=== PATIENT | female | born 1965 | race Caucasian/White ===

== ENCOUNTER → 2016-11-29 | Outpatient (CLI) | payer OTHER | LOC: FIMAGING 14:20 | DX: Z12.31 Encounter for screening mammogram for malignant neoplasm of breast (principal) | CPT/HCPCS: G0202 ==

== ENCOUNTER 2017-12-28 19:51 | Emergency (ER) | payer MEDICAID ==
[2017-12-28] MEDS ORDERED: ONDANSETRON 4 MG/2 ML VIAL IVP ONE (20:29)
[2017-12-28] MEDS ORDERED: NS 500 ML IV ONE (20:29)
[2017-12-28] MEDS ORDERED: fentaNYL 100 MCG/2 ML INJ IVP ONE (20:29)
--- NOTE | 2017-12-28 20:40 | EDPHY ---
H & P Time Seen by Provider: 12/28/17 20:09 HPI/ROS: HPI Abdominal pain. 52-year-old female by private vehicle with her friend. This patient complains of periumbilical abdominal pain which started on Saturday. She reports the pain comes on intermittently and feels achy and crampy. Today the pain worsened migrated to her right lower quadrant. She has had some nausea but no vomiting. She had a normal bowel movement earlier this morning. No bloody or melenic stool. Last meal was at 6:30 p.m., she ate dinner. No previous abdominal surgical history. She reports that she has had some burning with urination and increased frequency. ROS: Constitutional: No fever, no chills. No weakness. Eyes: No discharge. No changes in vision. ENT: No sore throat. No nasal congestion or rhinorrhea. Respiratory: No cough. No shortness of breath. Cardiac: No chest pain, no palpitations. Gastrointestinal: As above, no vomiting, no diarrhea. Genitourinary: No hematuria. As above. No vaginal bleeding. Musculoskeletal: No back pain. No neck pain. No myalgias or arthralgias. Skin: No rashes. Neurological: No headache. No focal weakness or altered sensation. Past medical history: Uterine fibroids, tubal ligation. Social history: Nonsmoker. Here with her friend. She is from the [place]. Drinks alcohol socially. Physical Exam: General Appearance: Alert, she appears uncomfortable but not in distress. This patient is responding to questions appropriately and in full sentences. This patient appears well-hydrated and well-nourished. Eyes: Pupils equal and round no pallor or injection. No lid edema, erythema or injection. Respiratory: There are no retractions, lungs are clear to auscultation with good air movement bilaterally. Cardiovascular: Regular rate and rhythm. No murmur. Gastrointestinal: Abdomen is soft with vague periumbilical and right lower quadrant tenderness on palpation, no masses, bowel sounds normal. No focal tenderness at McBurney's point. No Platt sign. Neurological: Motor sensory function is grossly intact. Cranial nerves are normal. Gait is normal. Skin: Warm and dry, no rashes. Musculoskeletal: Neck is supple and nontender. Extremities are symmetrical. All joints range without pain or impingement. Psychiatric: No agitation. No depression. Database: EKG: Imaging: CT abdomen and pelvis with IV contrast: Significant for constipation. Otherwise this study is normal. Appendicitis is unlikely. No other concerning findings. Results were discussed with staff radiologist Dr. Earl Bradley. Procedures: Emergency department course: Vital signs reviewed. She is moderately hypertensive. Vital signs otherwise normal. IV was placed, she was started on IV normal saline with 500 cc to be given over the next hour. She will be given 50 mcg of IV fentanyl initially for pain and 4 mg of IV Zofran. 9:50 p.m., patient re-evaluated. Resting comfortably at this time. Repeat abdominal exam at this time, she is soft, nontender nondistended. Discussed results of CT scan as well as other emergency department diagnostic workup. She was started on Keflex in the emergency department for urinary tract infection. I will also treat the patient for constipation. She will be sent home with a bottle of magnesium citrate. I will also write a prescription for a 1/2 prep of GoLYTELY should she not get significant relief from magnesium citrate. She is to follow up with her primary care physician on Saturday or Saturday of this coming week for re-evaluation. She feels comfortable with this plan and comfortable going home with her friend. Return to emergency department precautions have been thoroughly discussed with her. All of her questions were answered. She was discharged from emergency department in good condition. Differential Diagnosis: The differential diagnosis on this patient includes but is not limited to colitis, urinary tract infection, appendicitis. This represents a partial list of diagnoses considered. These considerations are based on history, physical exam, past history, reassessment and diagnostic testing. Smoking Status: Never smoked Constitutional: Initial Vital Signs Temperature (C) 36.7 C 12/28/17 19:53 Heart Rate 78 12/28/17 19:53 Respiratory Rate 18 12/28/17 19:53 Blood Pressure 169/104 H 12/28/17 19:53 O2 Sat (%) 96 12/28/17 19:53 O2 Delivery Mode Room Air Allergies/Adverse Reactions: No Known Allergies Allergy (Verified 12/28/17 19:55) Home Medications: Medication Instructions Recorded Thyroid [[place] Thyroid 60 MG (*)] 30 mg PO DAILY10 05/21/16 Cephalexin [Keflex (*)] 500 mg PO Q6 7 Days cap 12/28/17 Peg 3350/Na Sulf,Bicarb,Cl/KCl 2,000 ml PO ONCE #1 btl 12/28/17 [Golytely (RX)] Medical Decision Making - Diagnostics Imaging Results: Imaging Impressions Abdomen CT 12/28/17 20:31 Impression: 1. Pronounced constipation/obstipation from the level of the cecum to the rectosigmoid, with no mechanical obstruction or free air. There are few nonspecific fluid-filled loops of nondilated small bowel. 2. Incompletely-evaluated retrocecal appendix, but no apparent pericecal inflammation or free fluid. Findings were discussed with Cat Bucio MD at 21:40, on 12/28/2017. - Data Points Laboratory Results: Laboratory Results 12/28/17 20:20 12/28/17 20:20 12/28/17 12/28/17 12/28/17 20:20 20:20 20:20 WBC RBC Hgb Hct MCV MCH MCHC RDW Plt Count MPV Neut % (Auto) Lymph % (Auto) [place] % (Auto) Eos % (Auto) Baso % (Auto) Nucleat RBC Rel Count Absolute Neuts (auto) Absolute Lymphs (auto) Absolute Monos (auto) Absolute Eos (auto) Absolute Basos (auto) Absolute Nucleated RBC Immature Gran % Immature Gran # Sodium 141 mEq/L mEq/L (135-145) Potassium 3.7 mEq/L mEq/L (3.3-5.0) Chloride 104 mEq/L mEq/L (97-110) Carbon Dioxide 27 mEq/l mEq/l (22-31) Anion Gap 10 mEq/L mEq/L (8-16) BUN 10 mg/dL mg/dL (7-23) Creatinine 0.6 mg/dL mg/dL (0.6-1.0) Estimated GFR > 60 Glucose 113 mg/dL H mg/dL (70-100) Calcium 9.5 mg/dL mg/dL (8.5-10.4) Total Bilirubin 0.7 mg/dL mg/dL (0.1-1.4) Conjugated Bilirubin 0.4 mg/dL mg/dL (0.0-0.5) Unconjugated Bilirubin 0.3 mg/dL mg/dL (0.0-1.1) AST 30 IU/L IU/L (14-46) ALT 42 IU/L IU/L (9-52) Alkaline Phosphatase 80 IU/L IU/L (38-126) Total Protein 7.9 g/dL g/dL (6.3-8.2) Albumin 4.4 g/dL g/dL (3.5-5.0) Lipase 53 IU/L IU/L (23-300) Beta HCG, Qual NEGATIVE Urine Color PALE YELLOW Urine Appearance HAZY Urine pH 5.0 (5.0-7.5) Ur Specific [place] 1.003 (1.002-1.030) Urine Protein NEGATIVE (NEGATIVE) Urine Ketones NEGATIVE (NEGATIVE) Urine Blood 1+ H (NEGATIVE) Urine Nitrate NEGATIVE (NEGATIVE) Urine Bilirubin NEGATIVE (NEGATIVE) Urine Urobilinogen NEGATIVE EU EU (0.2-1.0) Ur Leukocyte Esterase 3+ H (NEGATIVE) Urine RBC NONE SEEN /hpf /hpf (0-3) Urine WBC 25-50 /hpf H /hpf (0-3) Ur Epithelial Cells 1+ /lpf /lpf (NONE-1+) Urine Mucus TRACE /lpf /lpf (NONE-1+) Urine Glucose NEGATIVE (NEGATIVE) 12/28/17 20:20 WBC 10.26 10^3/uL H 10^3/uL (3.80-9.50) RBC 4.48 10^6/uL 10^6/uL (4.18-5.33) Hgb 13.4 g/dL g/dL (12.6-16.3) Hct 40.6 % % (38.0-47.0) MCV 90.6 fL fL (81.5-99.8) MCH 29.9 pg pg (27.9-34.1) MCHC 33.0 g/dL g/dL (32.4-36.7) RDW 12.2 % % (11.5-15.2) Plt Count 295 10^3/uL 10^3/uL (150-400) MPV 10.7 fL fL (8.7-11.7) Neut % (Auto) 62.3 % % (39.3-74.2) Lymph % (Auto) 28.8 % % (15.0-45.0) York % (Auto) 6.8 % % (4.5-13.0) Eos % (Auto) 1.4 % % (0.6-7.6) Baso % (Auto) 0.3 % % (0.3-1.7) Nucleat RBC Rel Count 0.0 % % (0.0-0.2) Absolute Neuts (auto) 6.40 10^3/uL 10^3/uL (1.70-6.50) Absolute Lymphs (auto) 2.95 10^3/uL 10^3/uL (1.00-3.00) Absolute Monos (auto) 0.70 10^3/uL 10^3/uL (0.30-0.80) Absolute Eos (auto) 0.14 10^3/uL 10^3/uL (0.03-0.40) Absolute Basos (auto) 0.03 10^3/uL 10^3/uL (0.02-0.10) Absolute Nucleated RBC 0.00 10^3/uL 10^3/uL (0-0.01) Immature Gran % 0.4 % % (0.0-1.1) Immature Gran # 0.04 10^3/uL 10^3/uL (0.00-0.10) Sodium Potassium Chloride Carbon Dioxide Anion Gap BUN Creatinine Estimated GFR Glucose Calcium Total Bilirubin Conjugated Bilirubin Unconjugated Bilirubin AST ALT Alkaline Phosphatase Total Protein Albumin Lipase Beta HCG, Qual Urine Color Urine Appearance Urine pH Ur Specific Mag[place] Urine Protein Urine Ketones Urine Blood Urine Nitrate Urine Bilirubin Urine Urobilinogen Ur Leukocyte Esterase Urine RBC Urine WBC Ur Epithelial Cells Urine Mucus Urine Glucose Departure - Departure Disposition: Home, Routine, Self-Care Clinical Impression: Abdominal pain, Constipation, Urinary tract infection Condition: Good Instructions: High Fiber Diet (ED), Constipation (ED), Urinary Tract Infection in Women (ED) Additional Instructions: Read and follow provided instructions. Follow-up with your primary care physician in on Saturday or Saturday of this week for re-evaluation. Magnesium citrate: Drink entire contents of bottle this evening. This should help induce a bowel movement. I have also prescribed you GoLYTELY which can be taken if significant results are not achieved with the magnesium citrate. Take antibiotics as prescribed through entire course of treatment. Ibuprofen dosin mg every 6 hours with meals for the next 3 days only. Take only as needed for pain. Return to the emergency department for worsening pain, vomiting, fever or other serious concerns. Referrals: Nilda Doss MD [Primary Care Provider] - As per Instructions Prescriptions: Cephalexin [Keflex (*)] 500 mg PO Q6 7 Days cap Peg 3350/Na Sulf,Bicarb,Cl/KCl [Golytely (RX)] 2,000 ml PO ONCE #1 btl
[2017-12-28 20:45] LABS: PLATELET COUNT 295 10^3/uL (150-400)
[2017-12-28] MEDS ORDERED: IOPAMIDOL (ISOVUE-300) 100 ML BTL ONE (21:02)
[2017-12-28] MEDS ORDERED: CEPHALEXIN 500 MG CAP PO ONE (21:51)
[2017-12-28] MEDS ORDERED: CEPHALEXIN 500MG PREPACK#4 BTL TAKEHOME ONE (21:51)
[2017-12-28] MEDS ORDERED: MAGNESIUM CITRATE 300 ML BOTTLE PO ONE (22:10)
[2017-12-28] MEDS ORDERED: MAGNESIUM CITRATE 300 ML BOTTLE ONE (22:11)
[2017-12-28 22:25] VITALS: BP 151/78
== END 2017-12-28 22:25 | disposition home or self-care (01) ==
DX: N39.0 Urinary tract infection, site not specified (principal); K59.00 Constipation, unspecified; B96.20 Unspecified Escherichia coli [E. coli] as the cause of diseases classified elsewhere; Z98.51 Tubal ligation status
CPT/HCPCS: Q9967